=== PATIENT | female | born 1975 | race Caucasian/White ===

== ENCOUNTER 2018-11-14 06:21 | Emergency (ER) | payer SELFPAY ==
[~2018-11-14] VITALS: Ht 162.6 cm; Wt 76.7 kg
[2018-11-14 06:25] VITALS: Ht 162.6 cm; Wt 76.7 kg
[2018-11-14 07:37] VITALS: BP 146/92
== END 2018-11-14 07:37 | disposition home or self-care (01) ==
LOC: ED 06:21
DX: M54.5 Low back pain (principal); E03.9 Hypothyroidism, unspecified

== ENCOUNTER 2019-01-25 18:02 | Emergency (ER) | payer OTHER ==
[~2019-01-25] VITALS: Ht 167.6 cm; Wt 77.1 kg
[2019-01-25 18:06] VITALS: Ht 167.6 cm; Wt 77.1 kg
[2019-01-25 19:18] LABS: BASOPHIL % 0.5 % (0-2); PLATELET COUNT 247 x10^3mcL (130-400)
[2019-01-25 19:22] LABS: RED CELL DISTRIBUTION WIDTH 18.1 % (11.5-14.5)
[2019-01-25 19:26] LABS: CALCIUM 9.3 mg/dL (8.5-10.1); CARBON DIOXIDE 28.5 mmol/L (21-32); CHLORIDE SERUM 108 mmol/L (98-107); CREATININE SERUM 0.7 mg/dL (0.6-1.0); GFR1 > 60 mL/min; GLUCOSE SERUM 83 mg/dL (74-106); POTASSIUM SERUM 4.2 mmol/L (3.5-5.1); SODIUM SERUM 142 mmol/L (136-145)
[2019-01-25 19:30] LABS: ALBUMIN 3.5 g/dL (3.4-5.0); ALKALINE PHOSPHATASE 79 U/L (46-116); ALT/SGPT 27 U/L (14-59); AST/SGOT 20 U/L (15-37); BILIRUBIN TOTAL 0.5 mg/dL (0.20-1.00); LIPASE 131 IU/L (73-393); TOTAL PROTEIN, SERUM 7.6 g/dL (6.4-8.2)
[2019-01-25 20:38] VITALS: BP 120/70
== END 2019-01-25 20:38 | disposition home or self-care (01) ==
LOC: ED 18:02
PROVIDERS: Emergency Medicine
DX: R07.89 Other chest pain (principal); E78.00 Pure hypercholesterolemia, unspecified; R10.13 Epigastric pain; E03.9 Hypothyroidism, unspecified
CPT/HCPCS: J1885; J7030; Q0092